=== PATIENT | female | born 2000 | race Caucasian/White ===

== ENCOUNTER 2018-05-09 20:48 | Emergency (ER) | payer BC ==
[~2018-05-09] VITALS: Ht 154.9 cm; Wt 60.8 kg
[2018-05-09 21:15] VITALS: BP_SYST 133
--- NOTE | 2018-05-09 21:36 | NUR ---
Patient to ER bed 06 to gown for evaluation. Side rails up. Report given to MAT Flower
--- NOTE | 2018-05-09 21:50 | NUR ---
ER at bedside examining patient.
--- NOTE | 2018-05-09 22:00 | NUR ---
Pt came into the ED after hitting her L cooper while working out 2 hours prior to coming into the ED. Pt says while she was jumping onto the box jump her L leg hit the corner of the boc. Pain is mild. No n/v/d/ or fever. No other complaints/injuries noted. Will cont. to monitor.
[2018-05-09 23:36] VITALS: BP_SYST 133
--- NOTE | 2018-05-09 23:36 | NUR ---
Patient given written and verbal discharge instructions and verbalizes understanding. ER MD discussed with patient the results and treatment provided. Patient in stable condition. ID arm band removed. Patient educated on pain management and to follow up with PMD. Pain Scale 0/10 Opportunity for questions provided and answered. Medication side effect fact sheet provided.
== END 2018-05-09 23:36 | disposition home or self-care (01) ==
LOC: SED 20:48
DX: S81.812A Laceration without foreign body, left lower leg, initial encounter (principal); Z86.718 Personal history of other venous thrombosis and embolism; W22.8XXA Striking against or struck by other objects, initial encounter; Y93.89 Activity, other specified; Y92.89 Other specified places as the place of occurrence of the external cause; Y99.8 Other external cause status
CPT/HCPCS: 73590-TC; 99283

== ENCOUNTER 2023-12-23 21:34 | Emergency (ER) | payer BC ==
[~2023-12-23] VITALS: Ht 154.9 cm; Wt 49.9 kg
[2023-12-23 21:52] VITALS: BP_SYST 109; PULSE 71; RESP 16; TEMP 98.1; O2SAT 100
== END 2023-12-23 23:04 | disposition left against medical advice (07) ==
LOC: SED 21:34
DX: S61.012A Laceration without foreign body of left thumb without damage to nail, initial encounter (principal); Z53.21 Procedure and treatment not carried out due to patient leaving prior to being seen by health care provider; W26.0XXA Contact with knife, initial encounter; Y93.89 Activity, other specified; Y92.89 Other specified places as the place of occurrence of the external cause; Y99.8 Other external cause status